=== PATIENT | female | born 1955 | race Two or more races ===

== ENCOUNTER 2019-05-09 10:33 | Emergency (ER) | payer MEDICAID ==
[2019-05-09 11:45] LABS: Urine Bacteria FEW /hpf (None Seen); Urine Blood Negative /uL (Negative); Urine Specific Gravity 1.006 (1.001-1.035); Urine WBC <1 /hpf (0 - 5)
[2019-05-09] MEDS ORDERED: SODIUM CHLORIDE 0.9% 1,000 ML IVB ONE (13:21)
[2019-05-09 14:23] LABS: Basophils # (auto) 0 uL; Basophils % (auto) 0.3 % (0.0-2.0); Eosinophils # (auto) 0.1 uL; Eosinophils % (auto) 1.9 % (0.0-7.0); Hematocrit 42.6 % (36.0-46.0); Hemoglobin 14.6 g/dL (12.2-16.2); Lymphocytes # (auto) 2.1 uL; Lymphocytes % (auto) 36.6 % (10.0-50.0); Mean Corpuscular Hemoglobin 32.3 pg (28.0-32.0); Mean Corpuscular Hgb Conc. 34.3 g/dL (32.0-36.0); Mean Corpuscular Volume 94.1 fL (80.0-100.0); Monocytes # (auto) 0.4 uL; Monocytes % (auto) 6.5 % (0.0-12.0); Neutrophils # (auto) 3.2 uL; Neutrophils % (auto) 54.7 % (37.0-80.0); Nucleated Red Blood Cells % 0.1 %; Platelet Count (auto) 179 10^3/uL (140-450); Red Blood Cells 4.53 10^6/uL (4.0-5.20); Red Cell Distribution Width 13.2 % (11.8-14.3); White Blood Cell 5.8 10^3/uL (4.4-10.8)
[2019-05-09 14:37] LABS: INR 0.98 (0.9-1.15); Partial Thromboplastin Time 27.1 sec (23.64-32.05)
[2019-05-09 14:47] LABS: Albumin 4.2 g/dL (3.4-5.0); Calcium 9.2 mg/dL (8.5-10.1); Magnesium 2.2 mg/dL (1.6-2.6); Potassium 3.6 mmol/L (3.5-5.1)
[2019-05-09 14:52] LABS: Bilirubin, Total 0.5 mg/dL (0.2-1.0); Total Protein 8.3 g/dL (6.4-8.2)
[2019-05-09 15:30] VITALS: BP 127/82
== END 2019-05-09 16:02 | disposition home or self-care (01) ==
LOC: ER 10:33
DX: K76.0 Fatty (change of) liver, not elsewhere classified (principal); I10 Essential (primary) hypertension; E11.9 Type 2 diabetes mellitus without complications; Z90.49 Acquired absence of other specified parts of digestive tract
CPT/HCPCS: 36415; 71045; 74176; 80053; 81001; 82150; 83690; 83735; 85025; 85610; 85730; 93005; 94761; 99284; J7030

== ENCOUNTER 2020-06-10 01:28 | Emergency (ER) | payer MEDICARE, MEDICAID ==
[~2020-06-10] VITALS: Ht 149.9 cm; Wt 57.2 kg
[2020-06-10 03:36] VITALS: BP 168/88
== END 2020-06-10 05:51 | disposition home or self-care (01) ==
LOC: ER 01:28
DX: U07.1 COVID-19 (principal); J01.00 Acute maxillary sinusitis, unspecified; E11.9 Type 2 diabetes mellitus without complications; I10 Essential (primary) hypertension
CPT/HCPCS: 36415; 71045; 87426

== ENCOUNTER 2020-06-16 13:57 | Inpatient (IN) | payer MEDICARE, MEDICAID ==
[~2020-06-16] VITALS: Ht 149.9 cm; Wt 54.0 kg
[2020-06-16] MEDS ORDERED: DexAMETHasone SOD PHOS 10MG/1ML VIAL INJ IV ONE (14:45)
[2020-06-16] MEDS ORDERED: NITROGLYCERIN 0.4 MG SL TAB SL PRN (16:00)
[2020-06-16] MEDS ORDERED: MORPHINE SULF INJ 2 MG/ML SYRINGE 1ML IV PRN ×2 (16:00→16:45)
[2020-06-16 16:31] LABS: Basophils # (auto) 0 10 ^3/uL (0-0.2); Basophils % (auto) 0.1 % (0.0-2.0); Eosinophils # (auto) 0 10 ^3/uL (0-0.8); Hematocrit 39.4 % (36.0-46.0); Hemoglobin 13.7 g/dL (12.2-16.2); Lymphocytes # (auto) 0.7 10 ^3/uL (0.4-5.4); Lymphocytes % (auto) 9.1 % (10.0-50.0); Mean Corpuscular Hemoglobin 32.7 pg (28.0-32.0); Mean Corpuscular Hgb Conc. 34.8 g/dL (32.0-36.0); Monocytes # (auto) 0.3 10 ^3/uL (0-1.3); Monocytes % (auto) 3.7 % (0.0-12.0); Neutrophils # (auto) 6.7 10 ^3/uL (1.6-8.6); Neutrophils % (auto) 87.1 % (37.0-80.0); Platelet Count (auto) 148 10^3/uL (140-450); Red Cell Distribution Width 13.1 % (11.8-14.3); White Blood Cell 7.7 10^3/uL (4.4-10.8)
[2020-06-16 16:45] LABS: INR 0.98 (0.9-1.15); Partial Thromboplastin Time 26.2 sec (23.0-31.2)
[2020-06-16] MEDS ORDERED: ACETAMINOPHEN 500 MG TAB PO PRN ×2 (16:45)
[2020-06-16] MEDS ORDERED: DEXTROSE (50%) 50ML SYRG IV PRN (16:45)
[2020-06-16] MEDS ORDERED: TEMAZEPAM 15 MG CAP PO PRN (16:45)
[2020-06-16] MEDS ORDERED: PROMETHAZINE HCL 25 MG/ML 1ML IV PRN (16:45)
[2020-06-16 17:00] LABS: Albumin 3.3 g/dL (3.4-5.0); Anion Gap 8 (5-15); Blood Urea Nitrogen 15 mg/dL (7-18); Calcium 8.5 mg/dL (8.5-10.1); Carbon Dioxide 24 mmol/L (21-32); Chloride 103 mmol/L (98-107); Glucose 223 mg/dL (74-106); Potassium 3.6 mmol/L (3.5-5.1); Sodium 135 mmol/L (136-145)
[2020-06-16 17:09] LABS: Alanine Aminotransferase 61 U/L (13-56); Alkaline Phosphatase 72 U/L (45-117); Aspartate Aminotransferase 39 U/L (15-37); BUN/Creatinine Ratio 20.8; Bilirubin, Total 0.3 mg/dL (0.2-1.0); CRP High Sensitivity 1.22 mg/dL (< 0.3); GFR African American 105 mL/min; GFR Non-African American 86 mL/min; Lactate Dehydrogenase 297 U/L (84-246); Total Protein 7.3 g/dL (6.4-8.2)
[2020-06-16] MEDS: ACCU-CHEK COMFORT CURVE STRIP VI SCH ×2 (17:34→22:27)
[2020-06-16] MEDS: SODIUM CHLORIDE 0.9% 1,000 ML IV SCH ×3 (17:34→19:01)
[2020-06-16] MEDS: InsuLIN REG 1unit/0.01ml Soln (100units/ml) SC SCH ×2 (17:45→22:26)
[2020-06-16] MEDS ORDERED: ASPI-543 PO (18:45)
[2020-06-16] MEDS ORDERED: AMLO5TAB15 PO (18:45)
[2020-06-16] MEDS ORDERED: LOSA-69 PO (18:45)
[2020-06-16] MEDS ORDERED: METF-370 PO (18:45)
[2020-06-16] MEDS ORDERED: GLYB5TAB8 PO (18:45)
[2020-06-16 19:39] VITALS: BP 133/70
[2020-06-16] MEDS ORDERED: DEXA6TAB PO (19:59)
[2020-06-16] MEDS ORDERED: SIMV-8 PO (19:59)
[2020-06-16] MEDS ORDERED: ALBUAER3 IN (19:59)
[2020-06-16] MEDS ORDERED: ZINC220C8 PO (19:59)
[2020-06-16] MEDS ORDERED: [UNRECOGNIZED DRUG - CODE] PO (19:59)
[2020-06-16] MEDS ORDERED: DOXY100C2 PO (19:59)
[2020-06-16] MEDS: BUDESONIDE (INHALATION) 180 MCG IH IN SCH (21:42)
[2020-06-16] MEDS: ALBUTEROL SULF HFA 90MCG INH 200DOSE IN SCH (21:42)
[2020-06-16 21:53] VITALS: BP 132/74
[2020-06-17 05:00] VITALS: BP 148/71
[2020-06-17] MEDS: BUDESONIDE (INHALATION) 180 MCG IH IN SCH ×2 (06:27→22:21)
[2020-06-17] MEDS: ALBUTEROL SULF HFA 90MCG INH 200DOSE IN SCH ×3 (06:27→22:21)
[2020-06-17] MEDS: InsuLIN REG 1unit/0.01ml Soln (100units/ml) SC SCH ×4 (06:47→21:39)
[2020-06-17] MEDS: ACCU-CHEK COMFORT CURVE STRIP VI SCH ×4 (06:47→21:40)
[2020-06-17 07:43] LABS: Basophils # (auto) 0 10 ^3/uL (0-0.2); Basophils % (auto) 0.2 % (0.0-2.0); Eosinophils # (auto) 0 10 ^3/uL (0-0.8); Hematocrit 38.6 % (36.0-46.0); Hemoglobin 13.4 g/dL (12.2-16.2); Lymphocytes # (auto) 1.2 10 ^3/uL (0.4-5.4); Lymphocytes % (auto) 20.8 % (10.0-50.0); Mean Corpuscular Hemoglobin 32.6 pg (28.0-32.0); Mean Corpuscular Hgb Conc. 34.8 g/dL (32.0-36.0); Mean Corpuscular Volume 93.6 fL (80.0-100.0); Monocytes # (auto) 0.3 10 ^3/uL (0-1.3); Monocytes % (auto) 6.1 % (0.0-12.0); Neutrophils # (auto) 4.1 10 ^3/uL (1.6-8.6); Neutrophils % (auto) 72.9 % (37.0-80.0); Nucleated Red Blood Cells % 0.2 %; Platelet Count (auto) 152 10^3/uL (140-450); Red Blood Cells 4.12 10^6/uL (4.0-5.20); Red Cell Distribution Width 13.5 % (11.8-14.3); White Blood Cell 5.7 10^3/uL (4.4-10.8)
[2020-06-17 07:49] LABS: Albumin 2.9 g/dL (3.4-5.0); Calcium 7.9 mg/dL (8.5-10.1); Potassium 3.5 mmol/L (3.5-5.1)
[2020-06-17 07:51] LABS: BUN/Creatinine Ratio 23.4
[2020-06-17 07:55] LABS: Bilirubin, Total 0.3 mg/dL (0.2-1.0); Total Protein 7.3 g/dL (6.4-8.2)
[2020-06-17 08:00] VITALS: BP 142/76
[2020-06-17] MEDS: DexAMETHasone SOD PHOS 10MG/1ML VIAL INJ IV SCH (10:03)
[2020-06-17] MEDS: ASCORBIC ACID 1,000 MG TAB PO SCH (10:04)
[2020-06-17] MEDS: ENOXAPARIN SOD 40 MG/0.4 ML SYRINGE SC SCH (10:04)
[2020-06-17] MEDS: CHOLECALCIFEROL (VITD3) 2,000 UNIT CAP PO SCH (10:04)
[2020-06-17] MEDS: ZINC SULFATE 220mg CAP or TAB PO SCH (10:04)
[2020-06-17] MEDS: levoFLOXacin 500MG 100 ML IV SCH (10:04)
[2020-06-17 12:00] VITALS: BP 153/83
[2020-06-17 13:00] VITALS: BP 134/57
[2020-06-17 17:00] VITALS: BP 126/77
[2020-06-17 22:00] VITALS: BP 139/69
[2020-06-18 05:00] VITALS: BP 112/73
[2020-06-18] MEDS: InsuLIN REG 1unit/0.01ml Soln (100units/ml) SC SCH ×4 (06:32→22:46)
[2020-06-18] MEDS: ACCU-CHEK COMFORT CURVE STRIP VI SCH ×4 (06:32→22:00)
[2020-06-18] MEDS: ALBUTEROL SULF HFA 90MCG INH 200DOSE IN SCH ×3 (07:01→21:38)
[2020-06-18] MEDS: BUDESONIDE (INHALATION) 180 MCG IH IN SCH ×2 (07:01→21:38)
[2020-06-18] MEDS: CHOLECALCIFEROL (VITD3) 2,000 UNIT CAP PO SCH (08:56)
[2020-06-18] MEDS: levoFLOXacin 500MG 100 ML IV SCH (08:56)
[2020-06-18] MEDS: ZINC SULFATE 220mg CAP or TAB PO SCH (08:56)
[2020-06-18] MEDS: ENOXAPARIN SOD 40 MG/0.4 ML SYRINGE SC SCH (08:57)
[2020-06-18] MEDS: DexAMETHasone SOD PHOS 10MG/1ML VIAL INJ IV SCH (08:57)
[2020-06-18] MEDS: ASCORBIC ACID 1,000 MG TAB PO SCH (08:57)
[2020-06-18 09:00] VITALS: BP 118/63
[2020-06-18 13:00] VITALS: BP 116/71
[2020-06-18 17:00] VITALS: BP 123/78
[2020-06-18] MEDS: PROMETHAZINE W/CODEINE 5 ML ORAL SYRUP PO PRN (20:13)
[2020-06-18 22:00] VITALS: BP 142/68
[2020-06-19] VITALS (7 sets, daily range): BP systolic 120–145; BP diastolic 70–78
[2020-06-19] MEDS: ACCU-CHEK COMFORT CURVE STRIP VI SCH ×4 (06:45→21:49)
[2020-06-19] MEDS: InsuLIN REG 1unit/0.01ml Soln (100units/ml) SC SCH ×4 (06:45→21:49)
[2020-06-19] MEDS: PROMETHAZINE W/CODEINE 5 ML ORAL SYRUP PO PRN ×4 (06:55→21:57)
[2020-06-19] MEDS: BUDESONIDE (INHALATION) 180 MCG IH IN SCH ×2 (07:45→21:53)
[2020-06-19] MEDS: ALBUTEROL SULF HFA 90MCG INH 200DOSE IN SCH ×3 (07:45→21:53)
[2020-06-19] MEDS: levoFLOXacin 500MG 100 ML IV SCH (09:54)
[2020-06-19] MEDS: ZINC SULFATE 220mg CAP or TAB PO SCH (09:54)
[2020-06-19] MEDS: ASCORBIC ACID 1,000 MG TAB PO SCH (09:55)
[2020-06-19] MEDS: DexAMETHasone SOD PHOS 10MG/1ML VIAL INJ IV SCH (09:55)
[2020-06-19] MEDS: CHOLECALCIFEROL (VITD3) 2,000 UNIT CAP PO SCH (09:55)
[2020-06-19] MEDS: ENOXAPARIN SOD 40 MG/0.4 ML SYRINGE SC SCH (09:55)
[2020-06-20 05:00] VITALS: BP 138/54
[2020-06-20] MEDS: PROMETHAZINE W/CODEINE 5 ML ORAL SYRUP PO PRN ×3 (05:00→19:34)
[2020-06-20] MEDS: ALBUTEROL SULF HFA 90MCG INH 200DOSE IN SCH ×3 (05:52→21:28)
[2020-06-20] MEDS: BUDESONIDE (INHALATION) 180 MCG IH IN SCH ×2 (05:53→21:28)
[2020-06-20] MEDS: ACCU-CHEK COMFORT CURVE STRIP VI SCH ×4 (06:15→22:00)
[2020-06-20] MEDS: InsuLIN REG 1unit/0.01ml Soln (100units/ml) SC SCH ×4 (06:32→22:00)
[2020-06-20 09:00] VITALS: BP 131/88
[2020-06-20] MEDS: ENOXAPARIN SOD 40 MG/0.4 ML SYRINGE SC SCH (09:15)
[2020-06-20] MEDS: levoFLOXacin 500MG 100 ML IV SCH (09:15)
[2020-06-20] MEDS: CHOLECALCIFEROL (VITD3) 2,000 UNIT CAP PO SCH (09:15)
[2020-06-20] MEDS: ZINC SULFATE 220mg CAP or TAB PO SCH (09:15)
[2020-06-20] MEDS: DexAMETHasone SOD PHOS 10MG/1ML VIAL INJ IV SCH (09:15)
[2020-06-20] MEDS: ASCORBIC ACID 1,000 MG TAB PO SCH (09:16)
[2020-06-20] MEDS ORDERED: DEXTROSE (50%) 50ML SYRG IV PRN (12:45)
[2020-06-20 13:00] VITALS: BP 136/66
[2020-06-20 16:50] VITALS: BP 143/74
[2020-06-20] MEDS: traMADol HCL 50 MG TAB PO PRN (21:50)
[2020-06-20 22:00] VITALS: BP 140/78
[2020-06-21 05:00] VITALS: BP 147/76
[2020-06-21] MEDS: traMADol HCL 50 MG TAB PO PRN ×3 (05:19→21:50)
[2020-06-21] MEDS: ACCU-CHEK COMFORT CURVE STRIP VI SCH ×4 (06:15→21:42)
[2020-06-21] MEDS: InsuLIN REG 1unit/0.01ml Soln (100units/ml) SC SCH ×4 (06:18→21:50)
[2020-06-21] MEDS: ALBUTEROL SULF HFA 90MCG INH 200DOSE IN SCH ×3 (06:35→20:42)
[2020-06-21] MEDS: BUDESONIDE (INHALATION) 180 MCG IH IN SCH ×2 (06:35→20:42)
[2020-06-21 07:16] LABS: Basophils # (auto) 0 10 ^3/uL (0-0.2); Basophils % (auto) 0.1 % (0.0-2.0); Eosinophils # (auto) 0 10 ^3/uL (0-0.8); Eosinophils % (auto) 0.1 % (0.0-7.0); Hematocrit 37.6 % (36.0-46.0); Hemoglobin 13.2 g/dL (12.2-16.2); Lymphocytes # (auto) 1.4 10 ^3/uL (0.4-5.4); Lymphocytes % (auto) 21.3 % (10.0-50.0); Mean Corpuscular Hemoglobin 32.8 pg (28.0-32.0); Mean Corpuscular Volume 93.5 fL (80.0-100.0); Monocytes # (auto) 0.3 10 ^3/uL (0-1.3); Monocytes % (auto) 4.8 % (0.0-12.0); Neutrophils # (auto) 4.7 10 ^3/uL (1.6-8.6); Neutrophils % (auto) 73.7 % (37.0-80.0); Nucleated Red Blood Cells % 0.1 %; Platelet Count (auto) 189 10^3/uL (140-450); Red Blood Cells 4.02 10^6/uL (4.0-5.20); Red Cell Distribution Width 13.1 % (11.8-14.3); White Blood Cell 6.4 10^3/uL (4.4-10.8)
[2020-06-21 07:50] LABS: Calcium 8.5 mg/dL (8.5-10.1); Potassium 3.6 mmol/L (3.5-5.1)
[2020-06-21 08:00] VITALS: BP 143/82
[2020-06-21] MEDS: ZINC SULFATE 220mg CAP or TAB PO SCH (09:58)
[2020-06-21] MEDS: ASCORBIC ACID 1,000 MG TAB PO SCH (09:58)
[2020-06-21] MEDS: CHOLECALCIFEROL (VITD3) 2,000 UNIT CAP PO SCH (09:58)
[2020-06-21] MEDS: levoFLOXacin 500MG 100 ML IV SCH (09:58)
[2020-06-21] MEDS: DexAMETHasone SOD PHOS 10MG/1ML VIAL INJ IV SCH (09:58)
[2020-06-21] MEDS: ENOXAPARIN SOD 40 MG/0.4 ML SYRINGE SC SCH (09:59)
[2020-06-21] MEDS: PROMETHAZINE W/CODEINE 5 ML ORAL SYRUP PO PRN ×2 (10:09→20:05)
[2020-06-21 12:00] VITALS: BP 151/78
[2020-06-21 17:00] VITALS: BP 143/74
[2020-06-21] MEDS ORDERED: REMDESIVIR 200 MG in NS 210ml LOADING DOSE ADULT IV ONE (17:00)
[2020-06-21 22:00] VITALS: BP 131/72
[2020-06-22 04:49] VITALS: BP 132/70
[2020-06-22] MEDS: ACCU-CHEK COMFORT CURVE STRIP VI SCH ×4 (06:28→21:05)
[2020-06-22] MEDS: ALBUTEROL SULF HFA 90MCG INH 200DOSE IN SCH ×2 (06:37→21:36)
[2020-06-22] MEDS: BUDESONIDE (INHALATION) 180 MCG IH IN SCH ×2 (06:37→21:36)
[2020-06-22] MEDS: InsuLIN REG 1unit/0.01ml Soln (100units/ml) SC SCH ×4 (06:40→21:17)
[2020-06-22] MEDS: traMADol HCL 50 MG TAB PO PRN ×2 (06:40→19:41)
[2020-06-22 06:49] LABS: Potassium 3.7 mmol/L (3.5-5.1)
[2020-06-22 06:54] LABS: Basophils # (auto) 0 10 ^3/uL (0-0.2); Eosinophils # (auto) 0 10 ^3/uL (0-0.8); Eosinophils % (auto) 0.3 % (0.0-7.0); Hemoglobin 12.8 g/dL (12.2-16.2); Lymphocytes # (auto) 1.3 10 ^3/uL (0.4-5.4); Lymphocytes % (auto) 18.1 % (10.0-50.0); Mean Corpuscular Hemoglobin 32.6 pg (28.0-32.0); Mean Corpuscular Hgb Conc. 34.6 g/dL (32.0-36.0); Mean Corpuscular Volume 94.1 fL (80.0-100.0); Monocytes # (auto) 0.3 10 ^3/uL (0-1.3); Monocytes % (auto) 4.4 % (0.0-12.0); Neutrophils # (auto) 5.5 10 ^3/uL (1.6-8.6); Neutrophils % (auto) 77.2 % (37.0-80.0); Nucleated Red Blood Cells % 0.1 %; Platelet Count (auto) 200 10^3/uL (140-450); Red Blood Cells 3.93 10^6/uL (4.0-5.20); White Blood Cell 7.2 10^3/uL (4.4-10.8)
[2020-06-22 06:55] LABS: Albumin 2.5 g/dL (3.4-5.0); BUN/Creatinine Ratio 23.2; Bilirubin, Total 0.2 mg/dL (0.2-1.0); Calcium 8.5 mg/dL (8.5-10.1); Total Protein 6.7 g/dL (6.4-8.2)
[2020-06-22 08:54] VITALS: BP 122/72
[2020-06-22] MEDS: ENOXAPARIN SOD 40 MG/0.4 ML SYRINGE SC SCH (09:33)
[2020-06-22] MEDS: CHOLECALCIFEROL (VITD3) 2,000 UNIT CAP PO SCH ×2 (09:33→12:26)
[2020-06-22] MEDS: levoFLOXacin 500MG 100 ML IV SCH (09:33)
[2020-06-22] MEDS: ASCORBIC ACID 1,000 MG TAB PO SCH (09:33)
[2020-06-22] MEDS: ZINC SULFATE 220mg CAP or TAB PO SCH (09:33)
[2020-06-22] MEDS: DexAMETHasone SOD PHOS 10MG/1ML VIAL INJ IV SCH (09:33)
[2020-06-22 13:00] VITALS: BP_SYST 122; BP_SYST 155; BP_DIAS 57; BP_DIAS 72
[2020-06-22 17:00] VITALS: BP 112/67
[2020-06-22] MEDS: REMDESIVIR 100mg in NS 230ml DAILYx4DAYS (NO VENT) IV SCH (17:20)
[2020-06-22] MEDS: PROMETHAZINE W/CODEINE 5 ML ORAL SYRUP PO PRN (19:41)
[2020-06-22 22:00] VITALS: BP 136/74
[2020-06-22] MEDS ORDERED: DEXTROSE (50%) 50ML SYRG IV PRN (23:15)
[2020-06-23 00:03] VITALS: BP 136/74
[2020-06-23] MEDS: ACCU-CHEK COMFORT CURVE STRIP VI SCH ×6 (04:13→23:36)
[2020-06-23] MEDS: InsuLIN REG 1unit/0.01ml Soln (100units/ml) SC SCH ×6 (04:15→23:59)
[2020-06-23 05:00] VITALS: BP 101/78
[2020-06-23 06:16] LABS: Basophils # (auto) 0 10 ^3/uL (0-0.2); Eosinophils # (auto) 0 10 ^3/uL (0-0.8); Eosinophils % (auto) 0.4 % (0.0-7.0); Hematocrit 35.7 % (36.0-46.0); Hemoglobin 12.5 g/dL (12.2-16.2); Lymphocytes # (auto) 1.1 10 ^3/uL (0.4-5.4); Lymphocytes % (auto) 13.7 % (10.0-50.0); Mean Corpuscular Hemoglobin 32.8 pg (28.0-32.0); Mean Corpuscular Hgb Conc. 35.1 g/dL (32.0-36.0); Mean Corpuscular Volume 93.3 fL (80.0-100.0); Monocytes # (auto) 0.3 10 ^3/uL (0-1.3); Monocytes % (auto) 3.7 % (0.0-12.0); Neutrophils # (auto) 6.6 10 ^3/uL (1.6-8.6); Neutrophils % (auto) 82.2 % (37.0-80.0); Platelet Count (auto) 200 10^3/uL (140-450); Red Blood Cells 3.83 10^6/uL (4.0-5.20); Red Cell Distribution Width 12.8 % (11.8-14.3); White Blood Cell 8.1 10^3/uL (4.4-10.8)
[2020-06-23 06:35] LABS: Calcium 8.4 mg/dL (8.5-10.1); Potassium 3.4 mmol/L (3.5-5.1)
[2020-06-23 06:39] LABS: Albumin 2.4 g/dL (3.4-5.0); BUN/Creatinine Ratio 23.5
[2020-06-23 06:42] LABS: Bilirubin, Total 0.4 mg/dL (0.2-1.0); Total Protein 6.7 g/dL (6.4-8.2)
[2020-06-23 09:00] VITALS: BP 134/71
[2020-06-23] MEDS: levoFLOXacin 500MG 100 ML IV SCH (09:17)
[2020-06-23] MEDS: DexAMETHasone SOD PHOS 10MG/1ML VIAL INJ IV SCH (09:17)
[2020-06-23] MEDS: CHOLECALCIFEROL (VITD3) 2,000 UNIT CAP PO SCH (09:18)
[2020-06-23] MEDS: ENOXAPARIN SOD 40 MG/0.4 ML SYRINGE SC SCH (09:18)
[2020-06-23] MEDS: ZINC SULFATE 220mg CAP or TAB PO SCH (09:18)
[2020-06-23] MEDS: ASCORBIC ACID 1,000 MG TAB PO SCH (09:18)
[2020-06-23] MEDS: PROMETHAZINE W/CODEINE 5 ML ORAL SYRUP PO PRN ×2 (09:20→23:59)
[2020-06-23] MEDS: ALBUTEROL SULF HFA 90MCG INH 200DOSE IN SCH ×3 (09:31→21:06)
[2020-06-23] MEDS: BUDESONIDE (INHALATION) 180 MCG IH IN SCH ×2 (09:31→21:07)
[2020-06-23] MEDS ORDERED: DEXTROSE (50%) 50ML SYRG IV PRN (12:45)
[2020-06-23 13:00] VITALS: BP 131/70
[2020-06-23] MEDS ORDERED: POTASSIUM EFFERVESENT TAB 25 MEQ GT ONE (13:00)
[2020-06-23] MEDS ORDERED: POTASSIUM EFFERVESENT TAB 25 MEQ PO ONE (14:00)
[2020-06-23 17:00] VITALS: BP 115/77
[2020-06-23] MEDS: REMDESIVIR 100mg in NS 230ml DAILYx4DAYS (NO VENT) IV SCH (17:20)
[2020-06-23 22:00] VITALS: BP 125/69
[2020-06-24] MEDS: PROMETHAZINE W/CODEINE 5 ML ORAL SYRUP PO PRN (04:59)
[2020-06-24 05:00] VITALS: BP 133/75
[2020-06-24] MEDS: ACCU-CHEK COMFORT CURVE STRIP VI SCH ×3 (05:37→17:58)
[2020-06-24] MEDS: InsuLIN REG 1unit/0.01ml Soln (100units/ml) SC SCH ×3 (05:40→18:00)
[2020-06-24] MEDS: ALBUTEROL SULF HFA 90MCG INH 200DOSE IN SCH ×3 (05:48→22:35)
[2020-06-24] MEDS: BUDESONIDE (INHALATION) 180 MCG IH IN SCH ×2 (05:48→22:35)
[2020-06-24 06:32] LABS: Basophils # (auto) 0 10 ^3/uL (0-0.2); Basophils % (auto) 0.1 % (0.0-2.0); Eosinophils # (auto) 0.1 10 ^3/uL (0-0.8); Eosinophils % (auto) 1.2 % (0.0-7.0); Hematocrit 36.9 % (36.0-46.0); Hemoglobin 12.7 g/dL (12.2-16.2); Lymphocytes % (auto) 12.7 % (10.0-50.0); Mean Corpuscular Hemoglobin 32.2 pg (28.0-32.0); Mean Corpuscular Hgb Conc. 34.4 g/dL (32.0-36.0); Mean Corpuscular Volume 93.8 fL (80.0-100.0); Monocytes # (auto) 0.2 10 ^3/uL (0-1.3); Monocytes % (auto) 2.4 % (0.0-12.0); Neutrophils # (auto) 6.6 10 ^3/uL (1.6-8.6); Neutrophils % (auto) 83.6 % (37.0-80.0); Nucleated Red Blood Cells % 0.1 %; Platelet Count (auto) 220 10^3/uL (140-450); Red Blood Cells 3.94 10^6/uL (4.0-5.20); White Blood Cell 7.9 10^3/uL (4.4-10.8)
[2020-06-24 06:49] LABS: Albumin 2.5 g/dL (3.4-5.0); Calcium 8.3 mg/dL (8.5-10.1); Potassium 3.3 mmol/L (3.5-5.1)
[2020-06-24 06:54] LABS: BUN/Creatinine Ratio 23.6; Bilirubin, Total 0.4 mg/dL (0.2-1.0); Total Protein 6.7 g/dL (6.4-8.2)
[2020-06-24 09:00] VITALS: BP 107/62
[2020-06-24] MEDS: INSULIN NPH Isophane (HUMAN) 1unit/0.01ml Susp(100units/ml) SC SCH (12:27)
[2020-06-24] MEDS: CHOLECALCIFEROL (VITD3) 2,000 UNIT CAP PO SCH (12:33)
[2020-06-24] MEDS: DexAMETHasone SOD PHOS 10MG/1ML VIAL INJ IV SCH (12:33)
[2020-06-24] MEDS: ENOXAPARIN SOD 40 MG/0.4 ML SYRINGE SC SCH (12:33)
[2020-06-24] MEDS: ASCORBIC ACID 1,000 MG TAB PO SCH (12:33)
[2020-06-24] MEDS: ZINC SULFATE 220mg CAP or TAB PO SCH (12:33)
[2020-06-24] MEDS: levoFLOXacin 500MG 100 ML IV SCH (12:34)
[2020-06-24 13:00] VITALS: BP 132/74
[2020-06-24] MEDS ORDERED: POTASSIUM EFFERVESENT TAB 25 MEQ GT ONE (16:00)
[2020-06-24 17:00] VITALS: BP 131/70
[2020-06-24] MEDS: REMDESIVIR 100mg in NS 230ml DAILYx4DAYS (NO VENT) IV SCH (17:58)
[2020-06-24 22:00] VITALS: BP 130/66
[2020-06-25] MEDS: ACCU-CHEK COMFORT CURVE STRIP VI SCH ×5 (01:04→23:21)
[2020-06-25] MEDS: InsuLIN REG 1unit/0.01ml Soln (100units/ml) SC SCH ×5 (01:08→23:14)
[2020-06-25 05:00] VITALS: BP 135/70
[2020-06-25 06:49] LABS: Basophils # (auto) 0 10 ^3/uL (0-0.2); Basophils % (auto) 0.1 % (0.0-2.0); Eosinophils # (auto) 0.1 10 ^3/uL (0-0.8); Eosinophils % (auto) 1.3 % (0.0-7.0); Hemoglobin 12.4 g/dL (12.2-16.2); Lymphocytes # (auto) 1.1 10 ^3/uL (0.4-5.4); Lymphocytes % (auto) 13.4 % (10.0-50.0); Mean Corpuscular Hemoglobin 32.2 pg (28.0-32.0); Mean Corpuscular Hgb Conc. 34.5 g/dL (32.0-36.0); Mean Corpuscular Volume 93.4 fL (80.0-100.0); Monocytes # (auto) 0.3 10 ^3/uL (0-1.3); Monocytes % (auto) 3.2 % (0.0-12.0); Neutrophils # (auto) 6.5 10 ^3/uL (1.6-8.6); Platelet Count (auto) 236 10^3/uL (140-450); Red Blood Cells 3.85 10^6/uL (4.0-5.20); Red Cell Distribution Width 13.1 % (11.8-14.3); White Blood Cell 7.9 10^3/uL (4.4-10.8)
[2020-06-25 07:22] LABS: Albumin 2.2 g/dL (3.4-5.0); Calcium 8.1 mg/dL (8.5-10.1); Potassium 3.8 mmol/L (3.5-5.1)
[2020-06-25 07:38] LABS: Bilirubin, Total 0.4 mg/dL (0.2-1.0); Total Protein 6.7 g/dL (6.4-8.2)
[2020-06-25] MEDS: ALBUTEROL SULF HFA 90MCG INH 200DOSE IN SCH ×3 (07:38→20:22)
[2020-06-25] MEDS: BUDESONIDE (INHALATION) 180 MCG IH IN SCH ×2 (07:38→20:22)
[2020-06-25] MEDS: INSULIN NPH Isophane (HUMAN) 1unit/0.01ml Susp(100units/ml) SC SCH (08:33)
[2020-06-25 09:00] VITALS: BP 108/69
[2020-06-25] MEDS: levoFLOXacin 500MG 100 ML IV SCH (10:22)
[2020-06-25] MEDS: POTASSIUM EFFERVESENT TAB 25 MEQ GT SCH (10:22)
[2020-06-25] MEDS: DexAMETHasone SOD PHOS 10MG/1ML VIAL INJ IV SCH (10:22)
[2020-06-25] MEDS: ZINC SULFATE 220mg CAP or TAB PO SCH (10:22)
[2020-06-25] MEDS: ASCORBIC ACID 1,000 MG TAB PO SCH (10:23)
[2020-06-25] MEDS: CHOLECALCIFEROL (VITD3) 2,000 UNIT CAP PO SCH (10:23)
[2020-06-25] MEDS: ENOXAPARIN SOD 40 MG/0.4 ML SYRINGE SC SCH (10:23)
[2020-06-25] MEDS ORDERED: FUROSEMIDE 40 MG/4 ML VIAL IV ONE (12:00)
[2020-06-25] MEDS ORDERED: POTASSIUM CHL 20 Meq TABLET PO ONE (12:00)
[2020-06-25 13:00] VITALS: BP 143/82
[2020-06-25 17:00] VITALS: BP 128/79
[2020-06-25] MEDS: REMDESIVIR 100mg in NS 230ml DAILYx4DAYS (NO VENT) IV SCH (17:50)
[2020-06-25] MEDS: PROMETHAZINE W/CODEINE 5 ML ORAL SYRUP PO PRN (21:52)
[2020-06-25 22:00] VITALS: BP 125/65
[2020-06-26 05:00] VITALS: BP 138/66
[2020-06-26] MEDS: ACCU-CHEK COMFORT CURVE STRIP VI SCH ×3 (05:56→18:00)
[2020-06-26] MEDS: InsuLIN REG 1unit/0.01ml Soln (100units/ml) SC SCH ×3 (05:58→18:00)
[2020-06-26] MEDS: BUDESONIDE (INHALATION) 180 MCG IH IN SCH (07:24)
[2020-06-26] MEDS: ALBUTEROL SULF HFA 90MCG INH 200DOSE IN SCH ×2 (07:24→14:28)
[2020-06-26] MEDS: INSULIN NPH Isophane (HUMAN) 1unit/0.01ml Susp(100units/ml) SC SCH (07:58)
[2020-06-26 08:31] VITALS: BP 134/64
[2020-06-26 08:45] VITALS: BP 129/74
[2020-06-26] MEDS: POTASSIUM EFFERVESENT TAB 25 MEQ GT SCH (10:19)
[2020-06-26] MEDS: CHOLECALCIFEROL (VITD3) 2,000 UNIT CAP PO SCH (10:20)
[2020-06-26] MEDS: DexAMETHasone SOD PHOS 10MG/1ML VIAL INJ IV SCH (10:20)
[2020-06-26] MEDS: ASCORBIC ACID 1,000 MG TAB PO SCH (10:20)
[2020-06-26] MEDS: levoFLOXacin 500MG 100 ML IV SCH (10:20)
[2020-06-26] MEDS: ZINC SULFATE 220mg CAP or TAB PO SCH (10:20)
[2020-06-26] MEDS: ENOXAPARIN SOD 40 MG/0.4 ML SYRINGE SC SCH (10:21)
[2020-06-26] MEDS: PROMETHAZINE W/CODEINE 5 ML ORAL SYRUP PO PRN (10:21)
[2020-06-26] MEDS ORDERED: INSULIN NPH Isophane (HUMAN) 1unit/0.01ml Susp(100units/ml) SC ONE (12:00)
[2020-06-26 12:56] VITALS: BP 148/76
[2020-06-26 15:34] VITALS: BP 148/76
[2020-06-26] MEDS ORDERED: FURO20TA3 PO (16:36)
[2020-06-26] MEDS ORDERED: POTA1TAB61 PO (16:36)
== END 2020-06-26 19:00 | disposition home or self-care (01) | DRG 177 ==
LOC: ER 13:57 → TELE-EAST 13:58
PROVIDERS: ADMIT Internal Medicine; ATTEND Internal Medicine Pulmonary Disease
PROC: XW033E5 Introduction of Remdesivir Anti-infective into Peripheral Vein, Percutaneous Approach, New Technology Group 5 (ICD-10-PCS; 2020-06-21)
PROC: XW033E5 Introduction of Remdesivir Anti-infective into Peripheral Vein, Percutaneous Approach, New Technology Group 5 (ICD-10-PCS; principal; 2020-06-25)
DX: U07.1 COVID-19 (principal); J12.89 Other viral pneumonia; J96.01 Acute respiratory failure with hypoxia; E44.0 Moderate protein-calorie malnutrition; J00 Acute nasopharyngitis [common cold]; E11.9 Type 2 diabetes mellitus without complications; I10 Essential (primary) hypertension; E87.6 Hypokalemia; Z68.24 Body mass index [BMI] 24.0-24.9, adult; Z79.899 Other long term (current) drug therapy; Z90.49 Acquired absence of other specified parts of digestive tract; Z83.3 Family history of diabetes mellitus; Z82.49 Family history of ischemic heart disease and other diseases of the circulatory system
CPT/HCPCS: 36415; 71045; 80048; 80053; 82728; 82962; 83036; 83615; 84484; 85025; 85610; 85730; 86141; 87426; 87804; 93005; 94640; 96361; 96374; G0378; J1100; J1815; J1956

== ENCOUNTER 2021-10-06 15:20 | Inpatient (IN) | payer MEDICARE, MEDICAID ==
[2021-10-06] VITALS: BP 109/67
[~2021-10-06] VITALS: Ht 317.5 cm; Wt 52.2 kg
[~2021-10-06 15:20] MED LIST: ALBUAER3 IN; AMLO-489 PO; ASPI-543 PO; DEXA6TAB PO; DOXY100C2 PO; FURO20TA3 PO; GLYB5TAB8 PO; LOSA-69 PO; METF-370 PO; POTA1TAB61 PO; SIMV-8 PO; ZINC220C8 PO; [UNRECOGNIZED DRUG - CODE] PO
[2021-10-06 16:49] LABS: Basophils # (auto) 0 10 ^3/uL (0-0.2); Basophils % (auto) 0.7 % (0.0-2.0); Eosinophils # (auto) 0 10 ^3/uL (0-0.8); Eosinophils % (auto) 0.8 % (0.0-7.0); Hematocrit 40.9 % (36.0-46.0); Hemoglobin 14.4 g/dL (12.2-16.2); Lymphocytes # (auto) 2.3 10 ^3/uL (0.4-5.4); Lymphocytes % (auto) 40.7 % (10.0-50.0); Mean Corpuscular Hemoglobin 32.9 pg (28.0-32.0); Mean Corpuscular Hgb Conc. 35.2 g/dL (32.0-36.0); Mean Corpuscular Volume 93.5 fL (80.0-100.0); Monocytes # (auto) 0.3 10 ^3/uL (0-1.3); Monocytes % (auto) 5.4 % (0.0-12.0); Neutrophils # (auto) 2.9 10 ^3/uL (1.6-8.6); Neutrophils % (auto) 52.4 % (37.0-80.0); Nucleated Red Blood Cells % 0.2 %; Red Blood Cells 4.38 10^6/uL (4.0-5.20); Red Cell Distribution Width 13.2 % (11.8-14.3); White Blood Cell 5.5 10^3/uL (4.4-10.8)
[2021-10-06 17:10] LABS: Calcium 9.3 mg/dL (8.5-10.1); Potassium 3.9 mmol/L (3.5-5.1)
[2021-10-06 17:15] LABS: Bilirubin, Total 0.3 mg/dL (0.2-1.0); Total Protein 7.9 g/dL (6.4-8.2)
[2021-10-06] MEDS ORDERED: NITROGLYCERIN 0.4 MG SL TAB SL ONE (18:00)
[2021-10-06] MEDS ORDERED: NITROGLYCERIN 0.4 MG SL TAB SL PRN ×2 (20:45)
[2021-10-06] MEDS ORDERED: ONDANSETRON HCL 4 MG/2 ML VIAL IV PRN (20:45)
[2021-10-06] MEDS ORDERED: ACETAMINOPHEN 325 MG TAB PO PRN (20:45)
[2021-10-06] MEDS ORDERED: MORPHINE SULFATE 4 MG/ML SYR/VIAL IV PRN (20:45)
[2021-10-06] MEDS ORDERED: MORPHINE SULFATE INJECTION 2 MG/ML SYRG IV PRN (20:45)
[2021-10-06] MEDS: SODIUM CHLORIDE 0.9% 1,000 ML IV SCH (21:13)
[2021-10-06] MEDS: METOPROLOL TARTRATE 25 MG TAB PO SCH (21:26)
[2021-10-07 00:49] VITALS: BP 109/65
[2021-10-07] MEDS: SODIUM CHLORIDE 0.9% 1,000 ML IV SCH ×2 (01:00→10:05)
[2021-10-07 05:00] VITALS: BP 134/66
[2021-10-07 05:52] LABS: Basophils # (auto) 0 10 ^3/uL (0-0.2); Basophils % (auto) 0.5 % (0.0-2.0); Eosinophils # (auto) 0.1 10 ^3/uL (0-0.8); Eosinophils % (auto) 2.1 % (0.0-7.0); Hematocrit 36.8 % (36.0-46.0); Hemoglobin 13.1 g/dL (12.2-16.2); Lymphocytes # (auto) 2.7 10 ^3/uL (0.4-5.4); Lymphocytes % (auto) 46.6 % (10.0-50.0); Mean Corpuscular Hemoglobin 33.2 pg (28.0-32.0); Mean Corpuscular Hgb Conc. 35.6 g/dL (32.0-36.0); Mean Corpuscular Volume 93.4 fL (80.0-100.0); Monocytes # (auto) 0.4 10 ^3/uL (0-1.3); Monocytes % (auto) 7.5 % (0.0-12.0); Neutrophils # (auto) 2.5 10 ^3/uL (1.6-8.6); Neutrophils % (auto) 43.3 % (37.0-80.0); Nucleated Red Blood Cells % 0.2 %; Red Blood Cells 3.94 10^6/uL (4.0-5.20); Red Cell Distribution Width 13.3 % (11.8-14.3); White Blood Cell 5.8 10^3/uL (4.4-10.8)
[2021-10-07 06:16] LABS: Potassium 3.3 mmol/L (3.5-5.1)
[2021-10-07 06:22] LABS: INR 1.11 (0.9-1.15); Partial Thromboplastin Time 29.4 sec (23.6-33.0)
[2021-10-07 06:25] LABS: BUN/Creatinine Ratio 31.6; Calcium 8.6 mg/dL (8.5-10.1)
[2021-10-07 09:00] VITALS: BP 149/60
[2021-10-07] MEDS: DOCUSATE SOD 100 MG CAP PO SCH (10:00)
[2021-10-07] MEDS ORDERED: ATORVASTATIN 20 MG TAB PO SCH (10:00)
[2021-10-07] MEDS: amLODIPine BESYLATE 5 MG TAB PO SCH (10:00)
[2021-10-07] MEDS: ENOXAPARIN SOD 40 MG/0.4 ML SYRINGE SC SCH (10:00)
[2021-10-07] MEDS: ASPirin-EC 81 mg tab PO SCH (10:00)
[2021-10-07] MEDS: LOSARTAN POTASSIUM 50 MG TAB PO SCH (10:00)
[2021-10-07] MEDS: METOPROLOL TARTRATE 25 MG TAB PO SCH ×2 (10:00→22:09)
[2021-10-07] MEDS: FAMOTIDINE 20 MG TAB PO SCH (10:00)
[2021-10-07] MEDS ORDERED: POTASSIUM CHL 20 Meq TABLET PO ONE (12:15)
[2021-10-07] MEDS: ATORVASTATIN 20 MG TAB PO SCH (12:15)
[2021-10-07 13:00] VITALS: BP 136/64
[2021-10-07 17:00] VITALS: BP 132/71
[2021-10-07] MEDS ORDERED: DEXTROSE (50%) 50ML SYRG IV PRN (20:30)
[2021-10-07] MEDS ORDERED: InsuLIN REG 1unit/0.01ml Soln (100units/ml) SC SCH (22:00)
[2021-10-07] MEDS: ACCU-CHEK COMFORT CURVE STRIP VI SCH (22:02)
[2021-10-07 22:06] VITALS: BP 158/83
[2021-10-08 05:00] VITALS: BP 144/72
[2021-10-08 06:01] LABS: Basophils # (auto) 0 10 ^3/uL (0-0.2); Basophils % (auto) 0.4 % (0.0-2.0); Eosinophils # (auto) 0.1 10 ^3/uL (0-0.8); Eosinophils % (auto) 1.3 % (0.0-7.0); Hematocrit 37.2 % (36.0-46.0); Hemoglobin 12.9 g/dL (12.2-16.2); Lymphocytes # (auto) 2.3 10 ^3/uL (0.4-5.4); Lymphocytes % (auto) 30.2 % (10.0-50.0); Mean Corpuscular Hemoglobin 32.4 pg (28.0-32.0); Mean Corpuscular Hgb Conc. 34.7 g/dL (32.0-36.0); Mean Corpuscular Volume 93.6 fL (80.0-100.0); Monocytes # (auto) 0.4 10 ^3/uL (0-1.3); Monocytes % (auto) 5.1 % (0.0-12.0); Neutrophils # (auto) 4.7 10 ^3/uL (1.6-8.6); Nucleated Red Blood Cells % 0.1 %; Red Blood Cells 3.98 10^6/uL (4.0-5.20); Red Cell Distribution Width 13.2 % (11.8-14.3); White Blood Cell 7.5 10^3/uL (4.4-10.8)
[2021-10-08 06:13] LABS: Albumin 3.4 g/dL (3.4-5.0); BUN/Creatinine Ratio 28.3; Calcium 8.3 mg/dL (8.5-10.1); Potassium 3.3 mmol/L (3.5-5.1)
[2021-10-08 06:16] LABS: Bilirubin, Total 0.2 mg/dL (0.2-1.0); Total Protein 6.8 g/dL (6.4-8.2)
[2021-10-08] MEDS: ACCU-CHEK COMFORT CURVE STRIP VI SCH ×2 (06:48→11:30)
[2021-10-08] MEDS: InsuLIN REG 1unit/0.01ml Soln (100units/ml) SC SCH ×2 (06:48→11:30)
[2021-10-08 09:00] VITALS: BP 149/74
[2021-10-08] MEDS: ENOXAPARIN SOD 40 MG/0.4 ML SYRINGE SC SCH (10:00)
[2021-10-08] MEDS: ASPirin-EC 81 mg tab PO SCH (10:00)
[2021-10-08] MEDS: LOSARTAN POTASSIUM 50 MG TAB PO SCH (10:00)
[2021-10-08] MEDS: METOPROLOL TARTRATE 25 MG TAB PO SCH (10:00)
[2021-10-08] MEDS: DOCUSATE SOD 100 MG CAP PO SCH (10:00)
[2021-10-08] MEDS: FAMOTIDINE 20 MG TAB PO SCH (10:00)
[2021-10-08] MEDS: amLODIPine BESYLATE 5 MG TAB PO SCH (10:00)
[2021-10-08] MEDS: ATORVASTATIN 20 MG TAB PO SCH (10:00)
[2021-10-08] MEDS: SODIUM CHLORIDE 0.9% 1,000 ML IV SCH (12:45)
[2021-10-08 14:54] VITALS: BP 149/74
== END 2021-10-08 15:45 | disposition home or self-care (01) | DRG 313 ==
LOC: ER 15:20 → EDBD 15:20 → TELE 20:45 → TELE-CENTR 23:09
PROVIDERS: ADMIT Internal Medicine; ATTEND Internal Medicine
DX: R07.9 Chest pain, unspecified (principal); I10 Essential (primary) hypertension; E78.5 Hyperlipidemia, unspecified; Z20.822 Contact with and (suspected) exposure to COVID-19; E11.9 Type 2 diabetes mellitus without complications; Z80.0 Family history of malignant neoplasm of digestive organs; Z82.49 Family history of ischemic heart disease and other diseases of the circulatory system; Z83.3 Family history of diabetes mellitus; Z90.49 Acquired absence of other specified parts of digestive tract; Z79.84 Long term (current) use of oral hypoglycemic drugs
CPT/HCPCS: 36415; 71046; 80048; 80053; 80061; 82962; 83036; 83735; 84484; 85025; 85610; 85730; 87426; 93005; 93306; G0378; J1815